=== PATIENT | female | born 1975 | race Caucasian/White ===

== ENCOUNTER 2016-08-03 07:05 | Emergency (ER) | payer OTHER ==
[~2016-08-03] VITALS: Ht 162.6 cm; Wt 70.0 kg
[~2016-08-03 07:05] MED LIST: DIPH1TAB36 PO; DULO20 PO; FLON0.053; MELA10TA3 PO; ZYRT10TA12 PO
[2016-08-03 07:08] VITALS: BP 112/68; PULSE 106; RESP 17; TEMP 98.1; O2SAT 98
[2016-08-03] MEDS ORDERED: SODIUM CHLOR 0.9% 1000 ML INJ 1,000 ML IV ONE (07:30)
[2016-08-03] MEDS ORDERED: KETOROLAC TROMETHAMINE 30 MG/ML (IVP) VIAL IV PUSH ONE (07:30)
[2016-08-03] MEDS ORDERED: HYDROmorphone HCL PF 1 MG/ML VIAL IV PUSH ONE (07:30)
[2016-08-03] MEDS ORDERED: ONDANSETRON HCL 4 MG/2 ML VIAL IV PUSH ONE (07:30)
[2016-08-03] MEDS ORDERED: ZYRT10CA PO (07:33)
[2016-08-03 07:58] LABS: AUTOMATED NEUTROPHIL # 4.4 TH/MM3 (1.8-7.7); BASOPHIL # 0.1 TH/MM3 (0-0.2); BASOPHIL % 0.7 % (0.0-2.0); EOSINOPHIL # 0.2 TH/MM3 (0-0.4); EOSINOPHIL % 2.4 % (0.0-4.0); HEMATOCRIT 40.3 % (35.0-46.0); HEMO FLAGS DIFF FINAL; LYMPHOCYTE # 2.2 TH/MM3 (1.0-4.8); MEAN CELL VOLUME 86.6 FL (80.0-100.0); MEAN CORPUSCULAR HEMOGLOBIN 29.5 PG (27.0-34.0); MONO % 6.5 % (0.0-8.0); NEUT % 60.4 % (16.0-70.0); PLATELET COUNT 373 TH/MM3 (150-450); RED BLOOD COUNT 4.65 MIL/MM3 (4.00-5.30); RED CELL DISTRIBUTION WIDTH 12.1 % (11.6-17.2); WHITE BLOOD COUNT 7.4 TH/MM3 (4.0-11.0)
--- NOTE | 2016-08-03 07:58 | PD ---
HPI Chief Complaint: Flank/Kidney Pain Time Seen by Provider: 07:16 Travel History International Travel<30 days: No Contact w/Intl Traveler<30days: No Traveled to known affect area: No History of Present Illness HPI This is a 41-year-old female who has a history of uric acid kidney stones who presents to the emergency department with 3-4 days of left sided flank pain, constant, moderate severity associated with some nausea but no vomiting. Patient reports this feels similar to stones she's had in the past. Patient follows with Dr. Patel. She says she was trying to make it into the office but her pain got worse overnight so she came to the emergency department. She says she's never successfully passed a stone without intervention. PFSH Past Medical History Hx Anticoagulant Therapy: No Cardiovascular Problems: No Chemotherapy: No Cerebrovascular Accident: No Diabetes: No Diminished Hearing: No Kidney Stones: Yes Respiratory: No Immunizations Current: Yes Tetanus Vaccination: > 5 Years Influenza Vaccination: Yes ?: Not LMP: ABLATION Past Surgical History Section: Yes (x1) Cholecystectomy: Yes Genitourinary Surgery: Yes (lithotripsy r/t kidneys stones with stents placed) Hysterectomy: Yes (PARTIAL RIGHT) Social History Alcohol Use: No Tobacco Use: Yes (E CIG-quit 1 year ago smoked 2 ppd) Substance Use: No Allergies-Medications (Allergen,Severity, Reaction): Coded Allergies: Morphine (Verified Allergy, Unknown, hypotension, 08/03/16) Reported Meds & Prescriptions Reported Meds & Active Scripts Active Reported Zyrtec Allergy (Cetirizine HCl) 10 Mg Cap 10 Mg PO DAILY Melatonin (Melatonin-Pyridoxine) 1 Tab Tab 1 Tab PO HS Tylenol Pm (Acetaminophen/Diphenhydramine HCl) Tab 1 Tab PO HS Flonase (Fluticasone Propionate) 0.05 % Naspr 1 Spr NA DAILY 1 SPRAY EACH NOSTRIL Zyrtec (Cetirizine HCl) 10 Mg Tab 10 Mg PO DAILY Cymbalta (Duloxetine HCl) 20 Mg Cap 20 Mg PO DAILY Review of Systems Except as stated in HPI: all other systems reviewed are Neg Physical Exam Narrative GENERAL:Well appearing, no acute distress SKIN: Warm and dry. HEAD: Atraumatic. Normocephalic. EYES: Pupils equal and round. No injection or drainage. ENT: Moist mucous membranes NECK: Trachea midline. CARDIOVASCULAR: Regular rate and rhythm. No murmur appreciated. RESPIRATORY: Clear to auscultation. Breath sounds equal bilaterally. GASTROINTESTINAL: Abdomen soft, non-tender, nondistended. : Left CVA tenderness MUSCULOSKELETAL: No obvious deformities. NEUROLOGICAL: Awake and alert. No obvious cranial nerve deficits. Moving all extremities. PSYCHIATRIC: Appropriate mood and affect; insight and judgment normal. Data Data Last Documented VS Vital Signs Date Time Temp Pulse Resp B/P Pulse Ox O2 Delivery O2 Flow Rate FiO2 08/03/16 08:29 92 16 108/60 99 Room Air 08/03/16 07:08 98.1 Orders Complete Blood Count With Diff (08/03/16 07:21) Basic Metabolic Panel (Bmp) (08/03/16 07:21) Ct Abd/Pel W/O Iv Contrast (08/03/16 ) Ed Urine Pregnancytest Poc (08/03/16 07:21) ^ Insert Iv (08/03/16 07:21) Ketorolac Inj (Toradol Inj) (08/03/16 07:30) Hydromorphone Pf Inj (Dilaudid Pf Inj) (08/03/16 07:30) Ondansetron Inj (Zofran Inj) (08/03/16 07:30) Sodium Chlor 0.9% 1000 Ml Inj (Ns 1000 M (08/03/16 07:30) Urinalysis - C+S If Indicated (08/03/16 07:21) Urine Culture (08/03/16 07:35) Ceftriaxone Inj (Rocephin Inj) (08/03/16 09:00) Labs Laboratory Tests Test 08/03/16 08/03/16 07:35 07:45 Urine Collection Type CLEAN CATCH Urine Color YELLOW Urine Turbidity SLIGHT Urine pH 6.0 Urine Specific [place] 1.028 Urine Protein 30 mg/dL Urine Glucose (UA) NEG mg/dL Urine Ketones NEG mg/dL Urine Occult Blood MOD Urine Nitrite NEG Urine Bilirubin NEG Urine Leukocyte Esterase SMALL Urine RBC 20-24 /hpf Urine WBC 20-24 /hpf Urine Squamous Epithelial > 8 /hpf Cells Urine Bacteria MANY /hpf Microscopic Urinalysis Comment CULTURE INDICATED Urine Collection Time 07:35 White Blood Count 7.4 TH/MM3 Red Blood Count 4.65 MIL/MM3 Hemoglobin 13.7 GM/DL Hematocrit 40.3 % Mean Corpuscular Volume 86.6 FL Mean Corpuscular Hemoglobin 29.5 PG Mean Corpuscular Hemoglobin 34.0 % Concent Red Cell Distribution Width 12.1 % Platelet Count 373 TH/MM3 Mean Platelet Volume 7.8 FL Neutrophils (%) (Auto) 60.4 % Lymphocytes (%) (Auto) 30.0 % Monocytes (%) (Auto) 6.5 % Eosinophils (%) (Auto) 2.4 % Basophils (%) (Auto) 0.7 % Neutrophils # (Auto) 4.4 TH/MM3 Lymphocytes # (Auto) 2.2 TH/MM3 Monocytes # (Auto) 0.5 TH/MM3 Eosinophils # (Auto) 0.2 TH/MM3 Basophils # (Auto) 0.1 TH/MM3 CBC Comment DIFF FINAL Differential Comment Sodium Level 140 MEQ/L Potassium Level 3.7 MEQ/L Chloride Level 107 MEQ/L Carbon Dioxide Level 22.2 MEQ/L Anion Gap 11 MEQ/L Blood Urea Nitrogen 10 MG/DL Creatinine 0.84 MG/DL Estimat Glomerular Filtration 74 ML/MIN Rate Random Glucose 99 MG/DL Calcium Level 8.6 MG/DL MDM Medical Decision Making Medical Screen Exam Complete: Yes Emergency Medical Condition: Yes Medical Record Reviewed: Yes (patient was seen in the emergency department January 2015 due to stent dislodgment in the setting of a prior kidney stone) Interpretation(s) Afebrile, tachycardic No leukocytosis Electrolytes are reassuring Urinalysis: Urinary tract infection Differential Diagnosis Urinary tract infection, pyelonephritis, nephrolithiasis, obstructive uropathy Narrative Course This is a 41-year-old female who presents to the emergency department with right sided flank pain. She has a history of recurring kidney stones as well as bladder infections. She is placed on a monitor and an IV was established. She was given IV Toradol, Dilaudid, Zofran and IV hydration. Labs are reassuring. Urinalysis demonstrates urinary tract infection. CT scan is negative for obstructing stone. I suspect her symptoms are due to pyelonephritis. Patient was given a dose of IV ceftriaxone and will be discharged home on Keflex. Diagnosis Primary Impression: Pyelonephritis Patient Instructions: General Instructions Additional Instructions: If you develop fever, persistent vomiting, back pain, or inability to eat return to the emergency department as your urine infection may have progressed to a kidney infection. Complete your antibiotics as prescribed. Stay well hydrated with Gatorade or water. Followup with your primary care physician in 2-3 days if your symptoms have not resolved. Med/Other Pt SpecificInfo: Prescription(s) given Scripts Naproxen 500 Mg [id number] Mg PO BID PRN (PAIN SCALE 4 TO 10) #20 TAB Ref 0 Prov:Gladys Hoffmann MD 08/03/16 Cephalexin (Keflex)500 Mg [id number] Mg PO Q12H 7 Days Ref 0 Prov:Gladys Hoffmann MD 08/03/16 Disposition: 01 DISCHARGE HOME Condition: Stable Gladys Hoffmann MD Aug 03, 2016 07:58
[2016-08-03 08:05] LABS: POTASSIUM 3.7 MEQ/L (3.5-5.1)
[2016-08-03 08:08] LABS: BICARBONATE 22.2 MEQ/L (21.0-32.0)
[2016-08-03 08:26] LABS: GLUCOSE,URINE NEG (NEG); KETONE, URINE NEG (NEG); NITRITE,URINE NEG (NEG)
[2016-08-03 08:29] VITALS: BP 108/60; PULSE 92; RESP 16; O2SAT 99
[2016-08-03 08:30] LABS: BLOOD, URINE MOD (NEG)
[2016-08-03 08:31] LABS: BACTERIA, URINE MANY /hpf; COMMENT (UR) CULTURE INDICATED; CULTURE IF INDICATED CULTURE INDICATED; METHOD OF COLLECTION CLEAN CATCH; SQUAMOUS EPITHELIAL CELL URINE > 8 /hpf (0-5); URINE COLOR YELLOW (YELLW/STRAW)
--- NOTE | 2016-08-03 08:38 | RADHPO ---
EXAM DATE/TIME: 08/03/2016 08:04 [facility] COMPARISON: CT ABDOMEN & PELVIS W/O CONTRAST, January 22, 2015, 22:01. INDICATIONS : Left flank pain two days ago. ORAL CONTRAST: No oral contrast ingested. RADIATION DOSE: 12.82 CTDIvol (mGy) MEDICAL HISTORY : Renal calculi. SURGICAL HISTORY : Hysterectomy. Cholecystectomy. ENCOUNTER: Initial ACUITY: 2 days PAIN SCALE: 3/10 LOCATION: Left flank TECHNIQUE: Volumetric scanning of the abdomen and pelvis was performed. Using automated exposure control and ad justment of the mA and/or kV according to patient size, radiation dose was kept as low as reasonably achievable to obtain optimal diagnostic quality images. FINDINGS: LOWER LUNGS: The visualized lower lungs are clear. LIVER: Homogeneous density without lesion. There is no dilation of the biliary tree. Cholecystectomy clips. Hepatic low densities are stable. SPLEEN: Normal size without lesion. PANCREAS: Within normal limits. KIDNEYS: Normal in size and shape. There is no mass or hydronephrosis. Punctate 2 mm calculus seen within eac h kidney. Parapelvic renal low density in the left. No ureteral calculi. ADRENAL GLANDS: Within normal limits. VASCULAR: There is no aortic aneurysm. BOWEL/MESENTERY: The stomach, small bowel, and colon demonstrate no acute abnormality. There is no free intraperitone al air or fluid. ABDOMINAL WALL: Within normal limits. RETROPERITONEUM: There is no lymphadenopathy. BLADDER: No wall thickening or mass. REPRODUCTIVE: Small left ovarian cyst. INGUINAL: There is no lymphadenopathy or hernia. MUSCULOSKELETAL: Within normal limits for patient age. CONCLUSION: 1. Punctate calculus within each kidney, nonobstructing. 2. Status post cholecystectomy. 3. Hepatic and left renal low density likely benign. Zane Ellison MD on August 03, 2016 at 8:32 Board Certified Radiologist. This report was verified electronically.
[2016-08-03] MEDS ORDERED: cefTRIAXone INJ 1,000 MG in SODIUM CHLORIDE 0.9% INJ 100 ML IV ONE (09:00)
[2016-08-03] MEDS ORDERED: NAPR500T PO (09:00)
[2016-08-03] MEDS ORDERED: CEPH-460 PO (09:00)
[2016-08-03 09:10] VITALS: BP 100/59; PULSE 79; RESP 16
[2016-08-03 10:50] VITALS: BP 108/61
== END 2016-08-03 10:52 | disposition home or self-care (01) ==
LOC: PHED 07:05
DX: N12 Tubulo-interstitial nephritis, not specified as acute or chronic (principal); R11.0 Nausea; B96.89 Other specified bacterial agents as the cause of diseases classified elsewhere
CPT/HCPCS: 74176; 80048; 81001; 84703; 85025; 87086; 96361; 96365; 96375; 99284; J0696; J1170; J1885; J2405; J7030

== ENCOUNTER 2016-08-05 06:23 | Emergency (ER) | payer OTHER ==
[~2016-08-05] VITALS: Ht 162.6 cm; Wt 70.0 kg
[~2016-08-05 06:23] MED LIST changes: +CEPH-460 PO; -DIPH1TAB36 PO; -DULO20 PO; -FLON0.053; -MELA10TA3 PO; +NAPR500T PO; +ZYRT10CA PO; -ZYRT10TA12 PO
[2016-08-05 06:34] VITALS: BP 98/69; PULSE 103; RESP 18; TEMP 98.1; O2SAT 96
[2016-08-05 06:43] VITALS: BP 98/69; PULSE 103; RESP 18; TEMP 98.1; O2SAT 98
[2016-08-05 07:01] LABS: BLOOD, URINE SMALL (NEG); GLUCOSE,URINE NEG (NEG); KETONE, URINE NEG (NEG); NITRITE,URINE NEG (NEG)
[2016-08-05 07:06] LABS: URINE COLOR YELLOW (YELLW/STRAW)
[2016-08-05 07:07] LABS: SQUAMOUS EPITHELIAL CELL URINE > 8 /hpf (0-5)
[2016-08-05 07:08] LABS: BACTERIA, URINE MOD /hpf; MUCUS URINE OCC /lpf (OCC); WBC, URINE 0-2 /hpf (0-5)
[2016-08-05 07:10] LABS: COMMENT (UR) CULTURE INDICATED; CULTURE IF INDICATED CULTURE INDICATED; RBC, URINE 0-3 /hpf (0-3)
[2016-08-05] MEDS ORDERED: LEVA750T PO (07:23)
[2016-08-05] MEDS ORDERED: HYDR-3533 PO (07:23)
--- NOTE | 2016-08-05 07:23 | PD ---
HPI Chief Complaint: Flank/Kidney Pain Time Seen by Provider: 07:04 Travel History International Travel<30 days: No Contact w/Intl Traveler<30days: No Traveled to known affect area: No History of Present Illness HPI 41 year-old woman presents to the emergency department complaining of left flank pain. She was seen 2 days ago where she had a urine is positive for hematuria and pyuria, CT scan that showed punctate renal calculi. She's had multiple interventions in the past including cage lithotripsies, stents. She's had some dysuria with this as well. No fevers or chills. Some nausea but no vomiting. She felt like she had a stone. She is placed on Keflex for pyelonephritis, was given a dose of IV ceftriaxone. She is here with ongoing pain not relieved despite antibiotic therapy. She has been taking the Naprosyn as prescribed. History Past Medical History Narrative Medical Renal stones, UTI History of endometriosis, status post ablation Tetanus Vaccination: Unknown Influenza Vaccination: Yes LMP: Ablation 2015 Social History Alcohol Use: No Tobacco Use: Yes (E CIG-quit 1 year ago smoked 2 ppd) Allergies-Medications (Allergen,Severity, Reaction): Coded Allergies: Morphine (Verified Allergy, Unknown, hypotension, 08/03/16) Reported Meds & Prescriptions Reported Meds & Active Scripts Active Levaquin (Levofloxacin) 750 Mg Tab 750 Mg PO DAILY 5 Days Lortab (Hydrocodone-Acetaminophen) 5-325 Mg Tab 1-2 Tab PO Q6H PRN Naproxen 500 Mg Tab 500 Mg PO BID PRN Keflex (Cephalexin) 500 Mg Cap 500 Mg PO Q12H 7 Days Reported Zyrtec Allergy (Cetirizine HCl) 10 Mg Cap 10 Mg PO DAILY Review of Systems Except as stated in HPI: all other systems reviewed are Neg Physical Exam Narrative GENERAL: Well-appearing 41 year-old woman, no acute distress. SKIN: Warm and dry. HEAD: Atraumatic. Normocephalic. CARDIOVASCULAR: Regular rate and rhythm. No murmur appreciated. RESPIRATORY: No accessory muscle use. Clear to auscultation. Breath sounds equal bilaterally. GASTROINTESTINAL: Mild left-sided CVA tenderness to percussion. Minimal left- sided tenderness palpation. MUSCULOSKELETAL: No obvious deformities. No clubbing. No cyanosis. No edema. NEUROLOGICAL: Awake and alert. No obvious cranial nerve deficits. Motor grossly within normal limits. Normal speech. PSYCHIATRIC: Appropriate mood and affect; insight and judgment normal. Data Data Last Documented VS Vital Signs Date Time Temp Pulse Resp B/P Pulse Ox O2 Delivery O2 Flow Rate FiO2 08/05/16 06:47 103 18 08/05/16 06:43 98.1 98/69 98 Orders Urinalysis - C+S If Indicated (08/05/16 06:52) Urine Culture (08/05/16 06:55) Ketorolac Inj (Toradol Inj) (08/05/16 07:30) Labs Laboratory Tests Test 08/05/16 06:55 Urine Color YELLOW Urine Turbidity SLIGHT Urine pH 6.0 Urine Specific [place] 1.019 Urine Protein NEG mg/dL Urine Glucose (UA) NEG mg/dL Urine Ketones NEG mg/dL Urine Occult Blood SMALL Urine Nitrite NEG Urine Bilirubin NEG Urine Leukocyte Esterase TRACE Urine RBC 0-3 /hpf Urine WBC 0-2 /hpf Urine Squamous Epithelial > 8 /hpf Cells Urine Amorphous Sediment FEW Urine Bacteria MOD /hpf Urine Mucus OCC /lpf Microscopic Urinalysis Comment CULTURE INDICATED MDM Medical Decision Making Medical Screen Exam Complete: Yes Emergency Medical Condition: Yes Interpretation(s) UA was some bacteria but no pyuria or hematuria Differential Diagnosis Polynephritis, reflux, shingles, strain or sprain, other Narrative Course Medical decision making 41 year-old woman with ongoing left flank pain. History of multiple recurrent episodes of both stones and UTI in the past. States it feels like a stone that she's had it before. CT scan 2 days ago did show any ureterolithiasis. She looks overall well. Urinalysis is clearing. culture was showing lactobacillus with no sensitivities. repeat culture was sent. this point we'll switch her to levaquin with presumption of failed antibiotic therapy. we'll add lortab as well. i went be surprised if there is something else going on with her previous surgeries with reflux or scarring. she has a lot of chronic pain and dysuria as well. We'll recommend follow-up with her urologist. Diagnosis Primary Impression: Pyelonephritis Patient Instructions: General Instructions Additional Instructions: Switch antibiotic to Levaquin. Continue to take Naprosyn as prescribed. Use Lortab in addition to Naprosyn for pain control. Follow up with urologist in the next 2-4 days. Return to the emergency department for any worsening pain, fevers, chills, vomiting, or any other new or worsening symptoms. Med/Other Pt SpecificInfo: Prescription(s) given Scripts Levofloxacin (Levaquin)750 Mg [id number] Mg PO DAILY 5 Days Ref 0 Prov:Dong Diaz MD 08/05/16 Hydrocodone-Acetaminophen (Lortab)5-325 Mg Tab1-2 Tab PO Q6H PRN (PAIN) #20 TAB Prov:Dong Diaz MD 08/05/16 Disposition: 01 DISCHARGE HOME Condition: Stable Dong Diaz MD Aug 05, 2016 07:23
[2016-08-05] MEDS ORDERED: KETOROLAC TROMETHAMINE 60 MG/2 ML (IM) VIAL IM ONE (07:30)
== END 2016-08-05 07:35 | disposition home or self-care (01) ==
LOC: PHED 06:23
DX: N12 Tubulo-interstitial nephritis, not specified as acute or chronic (principal); F17.290 Nicotine dependence, other tobacco product, uncomplicated
CPT/HCPCS: 81001; 87086; 96372; 99283; J1885